=== PATIENT | male | born 1980 | race Caucasian/White ===

== ENCOUNTER 2020-02-21 02:04 | Emergency (ER) | payer SELFPAY ==
[2020-02-21 02:19] VITALS: BP 131/85; PULSE 94; RESP 18; TEMP 37.1; O2SAT 97; BMI 27.6
--- NOTE | 2020-02-21 02:28 | PC.NURSE ---
Pt's left ear flushed by nurse and bug was flushed out, pt did not wait to be seen by Physician, I explained that Dr Gallego would like to see him, but he declined. Pt left without being seen, he was informed to return if he has any issues.
[2020-02-21 02:33] VITALS: BP 000/00; PULSE 0; RESP 0; TEMP -17.7; TEMP 0
== END 2020-02-21 02:36 | disposition left against medical advice (07) ==
PROVIDERS: Emergency Provider Emergency Medicine
DX: T16.2XXA Foreign body in left ear, initial encounter (principal)
CPT/HCPCS: 99211; 99282

== ENCOUNTER 2020-09-08 13:48 | Emergency (ER) | payer OTHER, SELFPAY ==
[2020-09-08 14:00] VITALS: BP 139/91; PULSE 74; RESP 20; TEMP 36.8; O2SAT 99; BMI 24.4
--- NOTE | 2020-09-08 14:16 | HMH.EDUTC ---
[facility] [place] Clinical Impression: Exposure to COVID-19 virus Disposition: Home, Self-Care Condition on Discharge: Good Instructions: Preventing the Spread of Coronavirus Discharge Instructions Additional Instructions: You have been tested for COVID19. Please isolate as if you are positive. Prescriptions: Amoxicillin/Potassium Clav [Augmentin 875-125 Tablet] 1 tab PO Q12H 10 Days #20 tab Transmission Status: Pending to [facility] predniSONE [Prednisone 20mg Tab] 20 mg PO BID 5 Days #10 tab Transmission Status: Pending to [facility] Referrals: PCP,No [Primary Care Provider] - Forms: Work/School Release Time of Disposition: 14:22 Medical Decision Making - Soto Inquiry Pt receiving controlled substance: No Orders (Tests/Meds): ORDERS Category Date Time Status Covid-19 Nasal PCR Sendout P&C Routine Lab 09/08/20 13:55 Ordered [facility] [place] - General Stated complaint: Covid test Time Seen by Provider: 09/08/20 14:16 - History of Present Illness Provider Complaint: Cough and congestion X 1 month. No fever. Denies ear pain. Does have sore throat. No loss of taste or smell. Cough productive of yellow sputum. No vomiting or diarrhea. Onset (ago): month(s) (1) Location: chest Relieving factors: none Exacerbating factors: none Associated symptoms: denies other symptoms Treatments prior to arrival: none - Related Data Previous Rx's Medication Instructions Recorded Amoxicillin/Potassium Clav 1 tab PO Q12H 10 Days #20 tab 09/08/20 [Augmentin 875-125 Tablet] predniSONE [Prednisone 20mg 20 mg PO BID 5 Days #10 tab 09/08/20 Tab] [facility] History - Hepatitis A Screen Attestation statement:: This patient has been screened for Hepatitis A risk factors. I have reviewed the patient's past medical history: Yes Medical History: Denies:: Diabetes Mellitus Type 1, Diabetes Mellitus Type 2 - Social History Smoking Status: Current every day smoker Tobacco Type: cigarettes # Packs/Day (cigarettes): 1 Alcohol Intake: never Substance Use Type: marijuana Occupational Status: employed ROS Obtained: Yes All systems reviewed & no additional complaints - Constitutional Constitutional: Reports headache(s) - ENT Ears, Nose, Mouth, and Throat: Reports sinus pain - Respiratory Respiratory: Reports cough Physical Exam - General General appearance: alert, in no apparent distress - Head Head exam: normocephalic - Eye Eye exam: Present: PERRL - ENT ENT exam: Present: normal oropharynx - Chest Chest inspection: Present: symmetric chest wall rise - Respiratory Respiratory exam: Present: normal lung sounds bilaterally - Cardiovascular Cardiovascular exam: Present: regular rate, normal rhythm - Neurological Exam Neurological exam: Present: alert, oriented X3 - Psychiatric Psychiatric exam: Present: normal affect, normal mood - Skin Skin exam: Present: warm, dry, intact
[2020-09-08 14:29] VITALS: BP 139/91; PULSE 74; RESP 20; TEMP 36.8; O2SAT 99
[2020-09-09 11:48] LABS: Covid-19 Nasal PCR Sendout P&C Negative
== END 2020-09-08 14:33 | disposition home or self-care (01) ==
PROVIDERS: Emergency Provider Physician Assistant
DX: Z20.822 Contact with and (suspected) exposure to COVID-19 (principal); F17.210 Nicotine dependence, cigarettes, uncomplicated
CPT/HCPCS: 99202; G0463; U0004

== ENCOUNTER 2020-12-15 12:01 | Emergency (ER) | payer OTHER, SELFPAY ==
[2020-12-15 12:01] VITALS: BP 140/87; PULSE 84; RESP 16; TEMP 37.2; O2SAT 98; BMI 23.6
--- NOTE | 2020-12-15 12:25 | HMH.EDUTC ---
[facility] [place] Impression: Gastroenteritis Disposition: Home, Self-Care Condition on Discharge: Good Instructions: DI for Viral Gastroenteritis -- Adult Additional Instructions: Clear liquids,bland diet Prescriptions: Ondansetron [Ondansetron Odt 8mg Tab] 8 mg PO TID PRN 10 Days #30 tab PRN Reason: Nausea Transmission Status: Pending to [id number] Referrals: PCP,No [Primary Care Provider] - Forms: Work/School Release Time of Disposition: 12:31 Medical Decision Making - Soto Inquiry Pt receiving controlled substance: No Vital Signs: 12/15/20 12:01 Temperature 98.9 F Temperature Source Oral Pulse Rate [Right] 84 Respiratory Rate 16 Blood Pressure [Right Arm] 140/87 Blood Pressure Mean [Right Arm] 104 Blood Pressure Source [Right Arm] Automatic Cuff Blood Pressure Position [Right Arm] Sitting 02 Sat by Pulse Oximetry 98 Oxygen Delivery Method Room Air [facility] [place] - General Stated complaint: body aches, diarrhea, fever Time Seen by Provider: 12/15/20 12:25 Mode of Arrival: Ambulatory Source of Information: Patient Limitations: No Limitations Description of Symptoms (Recalled from Triage Doc. by RN): Pt c/po diarrhea, nausea that started yesterday along with fever HEENT Symptoms (Recalled from RN notes): No Resp Symptoms (Recalled from RN notes): No Skin Symptoms (Recalled from RN notes): No MS Symptoms (Recalled from RN notes): No Functional Status (Recalled from RN notes): na - History of Present Illness Provider Complaint: Nausea, vomiting, diarrhea X 2 days. Fever 102. No appetite. Has had body aches with fever. Denies ear pain, sore throat. No cough. Onset (ago): day(s) (2) Location: abdomen Relieving factors: none Exacerbating factors: none Associated symptoms: fever/chills, nausea/vomiting Treatments prior to arrival: other (Tylenol) - Related Data Previous Rx's Medication Instructions Recorded Amoxicillin/Potassium Clav 1 tab PO Q12H 10 Days #20 tab 09/08/20 [Augmentin 875-125 Tablet] predniSONE [Prednisone 20mg 20 mg PO BID 5 Days #10 tab 09/08/20 Tab] Ondansetron [Ondansetron Odt 8mg 8 mg PO TID PRN 10 Days #30 tab 12/15/20 Tab] Allergies Allergy/AdvReac Type Severity Reaction Status Date / Time No Known Allergies Allergy Verified 09/08/20 14:24 - Worker's Comp Is this a Worker's Comp case?: No [facility] History - Hepatitis A Screen Drug use history?: No High risk sexual behaviors?: No History of sexually transmitted infection?: No Currently employed?: No Childcare worker?: No Do you have indoor plumbing?: Yes Do you have electricity?: Yes Attestation statement:: This patient has been screened for Hepatitis A risk factors. I have reviewed the patient's past medical history: Yes Medical History: Denies:: Diabetes Mellitus Type 1, Diabetes Mellitus Type 2 - Social History Smoking Status: Current every day smoker Tobacco Type: cigarettes # Packs/Day (cigarettes): 1 Alcohol Intake: never Substance Use Type: marijuana Occupational Status: other ROS Obtained: Yes All systems reviewed & no additional complaints - Constitutional Constitutional: Reports body ache, Reports fever(s) - Gastrointestinal Gastrointestingal: Reports: loose stools, vomiting Physical Exam - General General appearance: alert, in no apparent distress - Head Head exam: normocephalic - Eye Eye exam: Present: PERRL - ENT ENT exam: Present: normal oropharynx - Respiratory Respiratory exam: Present: normal lung sounds bilaterally - Cardiovascular Cardiovascular exam: Present: regular rate, normal rhythm - Neurological Exam Neurological exam: Present: alert, oriented X3 - Psychiatric Psychiatric exam: Present: normal affect, normal mood - Skin Skin exam: Present: warm, dry, intact
[2020-12-15 12:32] VITALS: BP 140/87; PULSE 80; RESP 16; TEMP 36.8; O2SAT 98
== END 2020-12-15 12:34 | disposition home or self-care (01) ==
PROVIDERS: Emergency Provider Physician Assistant
DX: K52.9 Noninfective gastroenteritis and colitis, unspecified (principal); F17.210 Nicotine dependence, cigarettes, uncomplicated
CPT/HCPCS: 99202; G0463

== ENCOUNTER 2021-01-18 11:26 | Emergency (ER) | payer OTHER, SELFPAY ==
[2021-01-18 11:32] VITALS: BP 127/69; PULSE 78; RESP 17; TEMP 36.8; O2SAT 98; BMI 27.6
[2021-01-18 11:43] VITALS: BP 127/69; PULSE 78; RESP 17; TEMP 36.8; O2SAT 98
--- NOTE | 2021-01-18 11:46 | HMH.EDUTC ---
[facility] [place] Clinical Impression: Torticollis Disposition: Home, Self-Care Condition on Discharge: Good Instructions: DI for Torticollis Additional Instructions: Go home and rest. It would be best if you rested tomorrow too. No heavy lifting. No twisting. Take the oral medications as directed. The muscle relaxer (cyclobenzaprine-flexeril) will make you drowsy, so don't drive or operate heavy machinery after taking it. Follow up with your regular doctor. GO TO THE ER FOR ANY WORSENING SYMPTOMS OR CONCERN, ESPECIALLY BOWEL OR BLADDER ISSUES, SADDLE AREA NUMBNESS, FEVER, ETC Prescriptions: Ibuprofen [Ibuprofen 800mg Tablet] 800 mg PO Q8HP PRN #30 tab PRN Reason: Moderate Pain [facility] Cyclobenzaprine HCl [Cyclobenzaprine 10mg Tab] 10 mg PO BIDP PRN #20 tab PRN Reason: Muscle Spasm Transmission [facility] Referrals: Provider,Referral, [Primary Care Provider] - Forms: Work/School Release Time of Disposition: 12:04 Medical Decision Making - Medical Records Medical records reviewed: No: I reviewed the patient's medical records. - Soto Inquiry Pt receiving controlled substance: No Vital Signs: 01/18/21 11:32 01/18/21 11:43 Temperature 98.3 F 98.3 F Temperature Source Oral Pulse Rate 78 Pulse Rate [Left] 78 Respiratory Rate 17 17 Blood Pressure 127/69 Blood Pressure [Right Arm] 127/69 Blood Pressure Mean [Right Arm] 88 02 Sat by Pulse Oximetry 98 [facility] [place] HPI - General Stated complaint: [id number] back and neck pain Time Seen by Provider: 01/18/21 11:56 Mode of Arrival: Ambulatory Source of Information: Patient Limitations: No Limitations Description of Symptoms (Recalled from Triage Doc. 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 HEENT Symptoms (Recalled from RN notes): No Resp Symptoms (Recalled from RN notes): No Skin Symptoms (Recalled from RN notes): No MS Symptoms (Recalled from RN notes): Yes Functional Status (Recalled from RN notes): wnl - History of Present Illness Provider Complaint: He states that he has been having left sided neck pain since early this morning. He thinks that he pulled a muscle. It was already hurting, then he went to work and had to open a big bag of food. As he was tearing this open he felt his neck pain get worse. He is unable to turn his neck very far either way at this time. He denies any other complaints. - Related Data Previous Rx's Medication Instructions Recorded Amoxicillin/Potassium Clav 1 tab PO Q12H 10 Days #20 tab 09/08/20 [Augmentin 875-125 Tablet] predniSONE [Prednisone 20mg 20 mg PO BID 5 Days #10 tab 09/08/20 Tab] Ondansetron [Ondansetron Odt 8mg 8 mg PO TID PRN 10 Days #30 tab 12/15/20 Tab] Cyclobenzaprine HCl 10 mg PO BIDP PRN #20 tab 01/18/21 [Cyclobenzaprine 10mg Tab] Ibuprofen [Ibuprofen 800mg 800 mg PO Q8HP PRN #30 tab 01/18/21 Tablet] Allergies Allergy/AdvReac Type Severity Reaction Status Date / Time No Known Allergies Allergy Verified 01/18/21 11:43 - Worker's Comp Is this a Worker's Comp case?: No [facility] History - Hepatitis A Screen Drug use history?: No High risk sexual behaviors?: No History of sexually transmitted infection?: No Currently employed?: No Childcare worker?: No Do you have indoor plumbing?: Yes Do you have electricity?: Yes Attestation statement:: This patient has been screened for Hepatitis A risk factors. I have reviewed the patient's past medical history: Yes Medical History: Denies:: Diabetes Mellitus Type 1, Diabetes Mellitus Type 2 - Social History Smoking Status: Current every day smoker Tobacco Type: cigarettes # Packs/Day (cigarettes): 1 Alcohol Intake: never Substance Use Type: marijuana Occupational Status: employed ROS Obtained: Yes All systems review
== END 2021-01-18 12:05 | disposition home or self-care (01) ==
PROVIDERS: Emergency Provider Nurse Practitioner Family
DX: M43.6 Torticollis (principal); F17.210 Nicotine dependence, cigarettes, uncomplicated
CPT/HCPCS: 99202; G0463

== ENCOUNTER 2021-01-21 13:38 | Emergency (ER) | payer OTHER, SELFPAY ==
[2021-01-21 13:40] VITALS: PULSE 91; RESP 20; TEMP 36.6; O2SAT 99; BMI 27.6
--- NOTE | 2021-01-21 13:56 | HMH.EDUTC ---
[facility] [place] Clinical Impression: Torticollis Disposition: Home, Self-Care Condition on Discharge: Good Instructions: DI for Muscle Spasm Additional Instructions: Continue prescribed medication *Ibuprofen as prescribed with meal as needed for pain/inflammation *Not additional anti-inflammatory like motrin, aleve, advil with the above amount of ibuprofen. You can still take Tylenol every 4 hours as needed if you need something else for pain *Ice 20 minutes every 2 hours for the first 48 hours after the initial injury followed by moist heat every 20 minutes 3-4 times a day to affected area *Muscle relaxer as prescribed as needed for muscle spasms but remember, it WILL cause drowsiness You cannot take it and drive, operate machinery or care for small children. *Keep this area active, no movement leads to more stiffness, However take it easy and avoid heavy lifting pushing or pulling *Follow up with you family doctor if no improvement for further treatment Straight to ER if any life threatening symptoms Referrals: Provider,Referral, MD [Primary Care Provider] - As needed Forms: Work/School Release Time of Disposition: 14:04 Medical Decision Making - Soto Inquiry Pt receiving controlled substance: No Soto was queried for this patient: No Vital Signs: 01/21/21 13:40 Temperature 97.8 F Temperature Source Oral Pulse Rate [Right] 91 H Respiratory Rate 20 02 Sat by Pulse Oximetry 99 Oxygen Delivery Method Room Air [facility] [place] - General Stated complaint: neck pain Time Seen by Provider: 01/21/21 13:56 Mode of Arrival: Ambulatory Source of Information: Patient Limitations: No Limitations Description of Symptoms (Recalled from Triage Doc. by RN): PATIENT C/O RIGHT NECK AND SHOULDER PAIN X 1 WEEK HEENT Symptoms (Recalled from RN notes): No Resp Symptoms (Recalled from RN notes): No Skin Symptoms (Recalled from RN notes): No MS Symptoms (Recalled from RN notes): Yes Functional Status (Recalled from RN notes): WNL - History of Present Illness Provider Complaint: Patient states that he was pulling wire about a week ago and feels like he pulled muscles in his upper back and shoulder area States that he was having pain and soreness on the left and he came in and was seen and given medication but feels like he needs a couple more days off work requesting a work note States that now he is having soreness in the right side of his neck and shoulder area like he was having on the left States that prescribed muscle relaxers are working but not had enough time to get the soreness out - Related Data Previous Rx's Medication Instructions Recorded Cyclobenzaprine HCl 10 mg PO BIDP PRN #20 tab 01/18/21 [Cyclobenzaprine 10mg Tab] Ibuprofen [Ibuprofen 800mg 800 mg PO Q8HP PRN #30 tab 01/18/21 Tablet] Allergies Allergy/AdvReac Type Severity Reaction Status Date / Time No Known Allergies Allergy Verified 01/18/21 11:43 - Worker's Comp Is this a Worker's Comp case?: No [facility] History - Hepatitis A Screen Drug use history?: No High risk sexual behaviors?: No History of sexually transmitted infection?: No Currently employed?: No Childcare worker?: No Do you have indoor plumbing?: Yes Do you have electricity?: Yes Attestation statement:: This patient has been screened for Hepatitis A risk factors. I have reviewed the patient's past medical history: Yes Medical History: Denies:: Diabetes Mellitus Type 1, Diabetes Mellitus Type 2 Laterality Cases: Bilateral: Tonsillectomy - Social History Smoking Status: Current every day smoker Tobacco Type: cigarettes # Packs/Day (cigarettes): 1 Alcohol Intake: never Substance Use Type: marijuana Occupational Status: other ROS Obtained: Yes All systems reviewed & no additional complaints, Yes Systems reviewed as appropriate & no additional complaints - Cardiovascular Cardiovascular: Reports system reviewed and no additional complaints, except as docu - Res
[2021-01-21 13:58] VITALS: BP 00/00; PULSE 91; RESP 20; TEMP 36.6; O2SAT 99
== END 2021-01-21 14:00 | disposition home or self-care (01) ==
PROVIDERS: Emergency Provider Nurse Practitioner
DX: M43.6 Torticollis (principal); F17.210 Nicotine dependence, cigarettes, uncomplicated
CPT/HCPCS: 99202; G0463

== ENCOUNTER 2021-01-24 01:21 | Emergency (ER) | payer OTHER, SELFPAY ==
[2021-01-24 01:22] VITALS: BP 169/85; PULSE 71; RESP 14; TEMP 36.6; O2SAT 99; BMI 27.6
--- NOTE | 2021-01-24 02:01 | HMH.EDDENT ---
ED Disposition Clinical Impression: Gingivitis, Pain, dental Disposition: Home, Self-Care Condition on Discharge: Good Instructions: DI for Dental Pain Additional Instructions: see pcp and dentist for follow up Prescriptions: clindamycin HCL [Clindamycin HCl] 300 mg PO TID #21 cap Transmission Status: Pending to [id number] Referrals: Provider,Referral, [Primary Care Provider] - - Critical Care Critical Care Time: No Attestation: On 01/24/21, the high probability of a clinically significant, sudden or life threatening deterioration of the following system(s) required my full and direct attention, intervention and personal management. The time I documented below is in addition to time spent performing reported procedures but includes the following listed in this critical care notation. Medical Decision Making - Medical Records Medical records reviewed: Yes: I reviewed the patient's medical records. - Soto Inquiry Pt receiving controlled substance: No Vital Signs: 01/24/21 01:22 Temperature 97.9 F Temperature Source Oral Pulse Rate [Right] 71 Respiratory Rate 14 Blood Pressure [Right Arm] 169/85 H Blood Pressure Mean [Right Arm] 113 02 Sat by Pulse Oximetry 99 Orders (Tests/Meds): ED MEDICATIONS Discontinued Medications Generic Name Dose Route Start Last Admin Trade Name Freq PRN Reason Stop Dose Admin Benzocaine/Butamben/Tetracaine HCl 1 gm 01/24/21 01:34 01/24/21 01:39 Tetracaine/Benzocaine/Butamben 56 Gm [place] TP 01/24/21 01:35 1 gm ONCE ONE Administration Lidocaine HCl 15 ml 01/24/21 01:34 01/24/21 01:38 Lidocaine 2% Viscous Malika 15ml Udc PO 01/24/21 01:35 15 ml ONCE ONE Administration Medical Decision Narrative: will ask pt to f/u with pcp and dentist Dental HPI - General Chief complaint: Dental/Oral Stated complaint: Toothache Time Seen by Provider: 01/24/21 01:40 Mode of Arrival: Ambulatory Source of Information: Patient, Medical Record Limitations: No Limitations Description of Symptoms (Recalled from ER Triage Doc. by RN): pt states after eating supper started having upper and lower tooth pain on lt side, - History of Present Illness HPI Narrative: lt sided dental pain - worse tonight Complaint: tooth pain Onset (ago): hour(s) Duration: intermittent Severity: moderate Context: history of dental caries Treatment prior to arrival: none - Related Data Previous Rx's Medication Instructions Recorded Cyclobenzaprine HCl 10 mg PO BIDP PRN #20 tab 01/18/21 [Cyclobenzaprine 10mg Tab] Ibuprofen [Ibuprofen 800mg 800 mg PO Q8HP PRN #30 tab 01/18/21 Tablet] clindamycin HCL [Clindamycin HCl] 300 mg PO TID #21 cap 01/24/21 Allergies Allergy/AdvReac Type Severity Reaction Status Date / Time No Known Allergies Allergy Verified 01/18/21 11:43 [facility] History - Hepatitis A Screen Drug use history?: No High risk sexual behaviors?: No History of sexually transmitted infection?: No Currently employed?: No Childcare worker?: No Do you have indoor plumbing?: Yes Do you have electricity?: Yes Attestation statement:: This patient has been screened for Hepatitis A risk factors. I have reviewed the patient's past medical history: Yes Medical History: Denies:: Diabetes Mellitus Type 1, Diabetes Mellitus Type 2 Laterality Cases: Bilateral: Tonsillectomy - Social History Smoking Status: Current some day smoker Tobacco Type: cigarettes # Packs/Day (cigarettes): 1 Alcohol Intake: never Substance Use Type: marijuana Occupational Status: unemployed ROS Obtained: Yes All systems reviewed & no additional complaints - Constitutional Constitutional: Denies fever(s) - Eyes Eyes: Denies change in vision - ENT Ears, Nose, Mouth, and Throat: Reports as per HPI, Reports dental pain - Cardiovascular Cardiovascular: Denies chest pain - Respiratory Respiratory: Denies dyspnea - Gastrointestinal Eduardo
[2021-01-24 02:13] VITALS: BP 126/82; PULSE 77; RESP 18; TEMP 36.6; O2SAT 98
== END 2021-01-24 02:15 | disposition home or self-care (01) ==
PROVIDERS: Emergency Provider Emergency Medicine
DX: K05.10 Chronic gingivitis, plaque induced (principal); K02.9 Dental caries, unspecified
CPT/HCPCS: 99281

== ENCOUNTER 2021-05-04 13:48 | Emergency (ER) | payer OTHER, SELFPAY ==
[2021-05-04 15:17] VITALS: BP 120/79; PULSE 60; RESP 18; TEMP 36.6; O2SAT 96; BMI 25.9
[2021-05-04 15:24] VITALS: BP 120/79; PULSE 60; RESP 18; TEMP 36.6
--- NOTE | 2021-05-04 16:16 | HMH.EDUTC ---
[facility] [place] Clinical Impression: Viral syndrome, Exposure to COVID-19 virus Disposition: Home, Self-Care Condition on Discharge: Good Instructions: DI for Viral Syndrome Additional Instructions: Drink plenty of fluids. Take tylenol for pain or fever. Return if you begin to have difficulty breathing. Follow up with your regular doctor. GO TO THE ER FOR ANY WORSENING SYMPTOMS Quarantine until you know the results of your covid-19 test. If it is positive, the health department should call you and give you further instructions about your length of Quarantine and other things. Notify your school or workplace of your results and follow their instructions regarding return to work/school. Prescriptions: Brompheniramine/Pseudoephed/Dm [Bromfed Dm Cough Syrup] 5 ml PO Q6HP PRN #240 ml PRN Reason: Cough Transmission Status: Received by [facility] Ondansetron [Zofran 4mg ODT] 4 mg PO DAILYP PRN #12 tab PRN Reason: Nausea Transmission Status: Received by [facility] Referrals: Saad Velazco MD [Primary Care Provider] - Forms: Work/School Release Time of Disposition: 16:19 Medical Decision Making - Medical Records Medical records reviewed: No: I reviewed the patient's medical records. - Soto Inquiry Pt receiving controlled substance: No Vital Signs: 05/04/21 15:17 05/04/21 15:24 Temperature 97.9 F 97.9 F Temperature Source Oral Pulse Rate 60 Pulse Rate [Left] 60 Respiratory Rate 18 18 Blood Pressure 120/79 Blood Pressure [Right Arm] 120/79 Blood Pressure Mean [Right Arm] 92 02 Sat by Pulse Oximetry 96 [facility] [place] - General Stated complaint: Cough; SOB; Time Seen by Provider: 05/04/21 16:16 Mode of Arrival: Ambulatory Source of Information: Patient Limitations: No Limitations Description of Symptoms (Recalled from Triage Doc. by RN): pt states he was soa LAST NIGHT and had coughing spells. he would like a covid test. HEENT Symptoms (Recalled from RN notes): No Resp Symptoms (Recalled from RN notes): No Skin Symptoms (Recalled from RN notes): No MS Symptoms (Recalled from RN notes): No Functional Status (Recalled from RN notes): na - History of Present Illness Provider Complaint: He states that he has felt bad for the past 2 days. He has had body aches, fatigue, a dry cough and a scratchy sore throat. - Related Data Previous Rx's Medication Instructions Recorded Cyclobenzaprine HCl 10 mg PO BIDP PRN #20 tab 01/18/21 [Cyclobenzaprine 10mg Tab] Ibuprofen [Ibuprofen 800mg 800 mg PO Q8HP PRN #30 tab 01/18/21 Tablet] clindamycin HCL [Clindamycin HCl] 300 mg PO TID #21 cap 01/24/21 Brompheniramine/Pseudoephed/Dm 5 ml PO Q6HP PRN #240 ml 05/04/21 [Bromfed Dm Cough Syrup] Ondansetron [Zofran 4mg ODT] 4 mg PO DAILYP PRN #12 tab 05/04/21 Allergies Allergy/AdvReac Type Severity Reaction Status Date / Time No Known Allergies Allergy Verified 01/18/21 11:43 - Worker's Comp Is this a Worker's Comp case?: No [facility] History - Hepatitis A Screen Drug use history?: No High risk sexual behaviors?: No History of sexually transmitted infection?: No Currently employed?: No Childcare worker?: No Do you have indoor plumbing?: Yes Do you have electricity?: Yes Attestation statement:: This patient has been screened for Hepatitis A risk factors. I have reviewed the patient's past medical history: Yes Medical History: Denies:: Diabetes Mellitus Type 1, Diabetes Mellitus Type 2 Laterality Cases: Bilateral: Tonsillectomy - Social History Smoking Status: Current some day smoker Tobacco Type: cigarettes # Packs/Day (cigarettes): 1 Alcohol Intake: never Substance Use Type: marijuana Occupational Status: unemployed ROS Obtained: Yes All systems reviewed & no additional complaints - Constitutional Constitutional: Reports system reviewed and no additional complaints, except as docu - Eyes Eyes: Reports system reviewed and no
== END 2021-05-04 16:30 | disposition home or self-care (01) ==
PROVIDERS: Emergency Provider Nurse Practitioner Family; PCP Family Medicine
DX: B34.9 Viral infection, unspecified (principal); Z20.822 Contact with and (suspected) exposure to COVID-19; F17.210 Nicotine dependence, cigarettes, uncomplicated
CPT/HCPCS: 99202; C9803; G0463; U0003; U0005

== ENCOUNTER 2021-06-27 12:36 | Emergency (ER) | payer OTHER, SELFPAY ==
[2021-06-27 12:40] VITALS: BP 141/85; PULSE 85; RESP 19; TEMP 36.8; O2SAT 99; BMI 26.4
[2021-06-27 12:57] LABS: UTC Strep Screen (Rapid) Positive (Negative)
--- NOTE | 2021-06-27 13:12 | HMH.EDUTC ---
[facility] [place] Disposition Clinical Impression: Strep throat Disposition: Home, Self-Care Condition on Discharge: Good Instructions: DI for Strep Throat, Strep Throat Additional Instructions: *Monitor Temp, Over the counter Motrin or Tylenol as directed/as needed Tylenol every 4 hours and Motrin every 6 hours (as long as your family doctor has told you that you can take it) for fever or pain. and straight to ER if unable to lower temp less than 101.0 after medication given *Warm salt water gargles may help to soothe the throat *Throat Lozenges *Warm fluids like tea with honey may help to soothe the throat *Sleep elevated *Humidifier/Vaporizer *If you did not take Penicillin shot or was unable to, start taking antibiotic immediately and make sure that you take it for the FULL length of time although you should start to feel better in 24-48 hours *change toothbrush and toothpaste 24-48 hours after starting to take antibiotics so you do not reinfect yourself Monitor Temp. Tylenol and/or Ibuprofen as needed. ER if fever is no less than 101 despite alternating Tylenol and Ibuprofen * Encourage fluids, water, Gatorade, powerade, pedialyte if infant/toddler/or child *Cold fluids, popsicles and ice cream may feel good on his throat Follow up IMMEDIATELY for new or worsening symptoms or no Noticeable improvement over the next 48-72 hours. 911 for difficulty breathing or swallowing Prescriptions: Amoxicillin [Amoxicillin 875MG Tab] 875 mg PO Q12H #20 tab Transmission Status: Pending to [facility] Referrals: Saad Velazco MD [Primary Care Provider] - As needed Time of Disposition: 13:21 Medical Decision Making - Soto Inquiry Pt receiving controlled substance: No Soto was queried for this patient: No Vital Signs: 06/27/21 12:40 Temperature 98.2 F Temperature Source Oral Pulse Rate [Right Brachial] 85 Respiratory Rate 19 Blood Pressure [Right Arm] 141/85 H Blood Pressure Mean [Right Arm] 103 Blood Pressure Source [Right Arm] Automatic Cuff Blood Pressure Position [Right Arm] Sitting 02 Sat by Pulse Oximetry 99 Oxygen Delivery Method Room Air - Lab Data Lab results reviewed: Yes: I reviewed the patient's lab results. Lab Results 06/27/21 12:51: Strep Scn Rapid Clinic Positive A [facility] [place] HPI - General Stated complaint: sore throat, congestion, runny nose Time Seen by Provider: 06/27/21 13:13 Mode of Arrival: Ambulatory Source of Information: Patient Limitations: No Limitations Description of Symptoms (Recalled from Triage Doc. by RN): PATIENT C/O SORE THROAT, MILD FEVER, AND SINUS CONGESTION X 2 DAYS HEENT Symptoms (Recalled from RN notes): Yes Resp Symptoms (Recalled from RN notes): No Skin Symptoms (Recalled from RN notes): No MS Symptoms (Recalled from RN notes): No Functional Status (Recalled from RN notes): WNL - History of Present Illness Provider Complaint: Patient states that he has been having sore throat, sinus congestion and pressure along with drainage for several day States that today he was still feeling bad and wanted to get checked out - Related Data Previous Rx's Medication Instructions Recorded Amoxicillin [Amoxicillin 875MG 875 mg PO Q12H #20 tab 06/27/21 Tab] Allergies Allergy/AdvReac Type Severity Reaction Status Date / Time No Known Allergies Allergy Verified 01/18/21 11:43 - Worker's Comp Is this a Worker's Comp case?: No [facility] History - Hepatitis A Screen Drug use history?: No High risk sexual behaviors?: No History of sexually transmitted infection?: No Currently employed?: No Childcare worker?: No Do you have indoor plumbing?: Yes Do you have electricity?: Yes Attestation statement:: This patient has been screened for Hepatitis A risk factors. I have reviewed the patient's past medical history: Yes Medical History: Denies:: Diabetes Mellitus Type 1, Diabetes Mellitus Type 2 Laterality Cases: Bilateral: Tonsillectomy - Social Histo
[2021-06-27 13:28] VITALS: BP 141/85; PULSE 85; RESP 19; TEMP 36.8; O2SAT 99
== END 2021-06-27 13:31 | disposition home or self-care (01) ==
PROVIDERS: Emergency Provider Nurse Practitioner; PCP Family Medicine
DX: J02.0 Streptococcal pharyngitis (principal); F17.210 Nicotine dependence, cigarettes, uncomplicated
CPT/HCPCS: 87880; 99202; G0463

== ENCOUNTER 2021-09-01 13:34 | Emergency (ER) | payer OTHER, SELFPAY ==
[2021-09-01 15:35] VITALS: BP 121/86; PULSE 87; RESP 19; TEMP 37; O2SAT 99; BMI 27.6
--- NOTE | 2021-09-01 15:56 | HMH.EDUTC ---
[facility] [place] Clinical Impression: Exposure to COVID-19 virus Disposition: Home, Self-Care Condition on Discharge: Good Instructions: DI for COVID-19 (Suspected or Confirmed ), Preventing the Spread of Coronavirus Discharge Instructions Additional Instructions: *Monitor Temp, Over the counter Motrin or Tylenol as directed/as needed Tylenol every 4 hours and Motrin every 6 hours (as long as your family doctor has told you that you can take it) for fever or pain. and straight to ER if unable to lower temp less than 101.0 after medication given *Warm salt water gargles may help to soothe the throat *Throat Lozenges *Warm fluids like tea with honey may help to soothe the throat *Sleep elevated *Humidifier/Vaporizer Follow up IMMEDIATELY for new or worsening symptoms or no Noticeable improvement over the next 48-72 hours. 911 for difficulty breathing or swallowing You were tested for today for COVID19 your test result should be back in the next 24-48 hours, you may check your results on the [facility] Portal if you have trouble logging on you may call You was given a handout with instructions for Self Quarantine and Self isolation for while you wait on test results and what to do if they are positive If you are positive the Health Dept will be contacting you also Make sure to take your Vitamins Vit. C Vit D and Zinc if you can take them Referrals: Saad Velazco MD [Primary Care Provider] - As needed Forms: Work/School Release Time of Disposition: 15:59 Medical Decision Making - Soto Inquiry Pt receiving controlled substance: No Soto was queried for this patient: No Vital Signs: 09/01/21 15:35 Temperature 98.6 F Temperature Source Oral Pulse Rate [Right Brachial] 87 Respiratory Rate 19 Blood Pressure [Right Arm] 121/86 Blood Pressure Mean [Right Arm] 97 Blood Pressure Source [Right Arm] Automatic Cuff Blood Pressure Position [Right Arm] Sitting 02 Sat by Pulse Oximetry 99 Oxygen Delivery Method Room Air Orders (Tests/Meds): ORDERS Category Date Time Status Covid-19 Nasal PCR ([facility]) Routine Lab 09/01/21 15:40 [place] [facility] [place] - General Stated complaint: covid test Time Seen by Provider: 09/01/21 15:56 Mode of Arrival: Ambulatory Source of Information: Patient Limitations: No Limitations Description of Symptoms (Recalled from Triage Doc. by RN): PATIENT REQUESTING COVID TEST D/T EXPOSURE HEENT Symptoms (Recalled from RN notes): No Resp Symptoms (Recalled from RN notes): No Skin Symptoms (Recalled from RN notes): No MS Symptoms (Recalled from RN notes): No Functional Status (Recalled from RN notes): WNL - History of Present Illness Provider Complaint: Patient states that he was around his girlfriend and she recently tested positive for COVID state that he is not having any symptoms but work will not let him return without a COVID test - Related Data Previous Rx's Medication Instructions Recorded Amoxicillin [Amoxicillin 875MG 875 mg PO Q12H #20 tab 06/27/21 Tab] Allergies Allergy/AdvReac Type Severity Reaction Status Date / Time No Known Allergies Allergy Verified 01/18/21 11:43 - Worker's Comp Is this a Worker's Comp case?: No H History - Hepatitis A Screen Drug use history?: No High risk sexual behaviors?: No History of sexually transmitted infection?: No Currently employed?: No Childcare worker?: No Do you have indoor plumbing?: Yes Do you have electricity?: Yes Attestation statement:: This patient has been screened for Hepatitis A risk factors. I have reviewed the patient's past medical history: Yes Medical History: Denies:: Diabetes Mellitus Type 1, Diabetes Mellitus Type 2 Laterality Cases: Bilateral: Tonsillectomy - Social History Smoking Status: Current every day smoker Tobacco Type: cigarettes # Packs/Day (cigarettes): 1 Alcohol Intake: never Substance Use Type: marijuana Occupational Status: other ROS Obtained: Yes All syst
[2021-09-01 16:01] VITALS: BP 121/86; PULSE 87; RESP 19; TEMP 37; O2SAT 99
== END 2021-09-01 16:09 | disposition home or self-care (01) ==
PROVIDERS: Emergency Provider Nurse Practitioner; PCP Family Medicine
DX: U09.9 Post COVID-19 condition, unspecified (principal)
CPT/HCPCS: 99202; C9803; G0463; U0003; U0005

== ENCOUNTER 2021-10-02 09:01 | Emergency (ER) | payer OTHER, SELFPAY ==
[2021-10-02 09:28] VITALS: BP 147/83; PULSE 88; RESP 18; TEMP 37.4; O2SAT 98; BMI 25.0
--- NOTE | 2021-10-02 09:45 | XR_ITS ---
FINAL REPORT CLINICAL HISTORY: cough, fever FINDINGS: Two views of the chest were obtained. The heart size and pulmonary vascularity are within normal limits. The mediastinum is normal. No acute pulmonary abnormality is identified. There is no pneumothorax. The bony thorax is intact. IMPRESSION: No active cardiopulmonary disease. Reviewed, Interpreted and Dictated by Butch Edwards III, MD Transcribed by Sierra Arcos Authenticated by Butch Edwards III, MD on 10/02/2021 11:32:16 AM [facility]
[2021-10-02 09:55] LABS: UTC Influenza A Antigen Negative (Negative); UTC Influenza B Antigen Negative (Negative)
--- NOTE | 2021-10-02 09:58 | HMH.EDUTC ---
[facility] [place] Disposition Clinical Impression: Exposure to COVID-19 virus, Viral syndrome Pharyngitis Qualifiers: Pharyngitis/tonsillitis etiology: unspecified etiology Qualified Code(s): J02.9 - Acute pharyngitis, unspecified Disposition: Home, Self-Care Condition on Discharge: Good Instructions: DI for Pharyngitis/Tonsillopharyngitis -- Adult, DI for COVID-19 (Suspected or Confirmed ), Preventing the Spread of Coronavirus Discharge Instructions Additional Instructions: Drink plenty of fluids. Take tylenol or ibuprofen for pain or fever. Take the medications as directed. Follow up with your regular doctor. GO TO THE ER FOR ANY WORSENING SYMPTOMS Quarantine until you know the results of your covid-19 test. Notify your school or workplace of your results and follow their instructions regarding return to work/school. Prescriptions: Albuterol Sulfate [Albuterol Sulfate Hfa] 2 puffs IH Q6HP PRN 30 Days #1 each PRN Reason: Shortness Of Breath Transmission Status: Received by [facility] Brompheniramine/Pseudoephed/Dm [Bromfed Dm Cough Syrup] 5 ml PO Q6HP PRN #240 ml PRN Reason: Cough Transmission Status: Received by [facility] Ondansetron [Zofran 4mg ODT] 4 mg PO Q8HP PRN #20 tab PRN Reason: Nausea Transmission Status: Received by [facility] methylPREDNISolone [Medrol] 4 mg PO DIRECTED 6 Days #21 packet Transmission Status: Received by [facility] Azithromycin [Z-Yordan 250mg Tab*] 250 mg PO UD DOSE PK #6 tab Transmission Status: Received by [facility] Referrals: Saad Velazco MD [Primary Care Provider] - Forms: Work/School Release Time of Disposition: 10:39 Medical Decision Making - Medical Records Medical records reviewed: No: I reviewed the patient's medical records. - Soto Inquiry Pt receiving controlled substance: No Vital Signs: 10/02/21 09:28 10/02/21 11:10 Temperature 99.3 F 99.3 F Temperature Source Oral Pulse Rate 88 Pulse Rate [Left] 88 Respiratory Rate 18 18 Blood Pressure 147/83 H Blood Pressure [Right Arm] 147/83 H Blood Pressure Mean [Right Arm] 104 02 Sat by Pulse Oximetry 98 - Lab Data Lab results reviewed: Yes: I reviewed the patient's lab results. Lab Results 10/02/21 09:31: Group A Strep Rapid Negative 10/02/21 09:32: Influenza Type A Ag Negative, Influenza Type B Ag Negative Orders (Tests/Meds): ORDERS Category Date Time Status Chest XR 2 view (NOT portable) [XR chest 2V] Stat Exams 10/02/21 09:45 Taken Covid-19 Nasal PCR ([facility]) Routine Lab 10/02/21 09:31 Received Strep Screen Confirmation Stat Micro 10/02/21 09:31 Received [facility] UTC HPI - General Stated complaint: fever, cough, congestion, body aches Time Seen by Provider: 10/02/21 09:58 Mode of Arrival: Ambulatory Source of Information: Patient Limitations: No Limitations Description of Symptoms (Recalled from Triage Doc. by RN): pt states symptoms started on 09/28. pt states initially he was having diarhea and now is having congestion, fever, dry cough, pain with deep breathing and chest tightness. HEENT Symptoms (Recalled from RN notes): No Resp Symptoms (Recalled from RN notes): No Skin Symptoms (Recalled from RN notes): No MS Symptoms (Recalled from RN notes): No Functional Status (Recalled from RN notes): wnl - History of Present Illness Provider Complaint: He states that for the past 2 days he has felt bad. He has had sore throat, chills, fever up to 103, n/v/d. He denies any abdominal pain. - Related Data Previous Rx's Medication Instructions Recorded Amoxicillin [Amoxicillin 875MG 875 mg PO Q12H #20 tab 06/27/21 Tab] Albuterol Sulfate [Albuterol 2 puffs IH Q6HP PRN 30 Days #1 each 10/02/21 Sulfate Hfa] Azithromycin [Z-Yordan 250mg Tab*] 250 mg PO UD DOSE PK #6 tab 10/02/21 Brompheniramine/Pseudoephed/Dm 5 ml PO Q6HP PRN #240 ml 10/02/21 [Bromfed Dm Cough Syrup] Ondansetron [Zofran 4mg ODT] 4 mg PO
[2021-10-02 10:14] LABS: Strep Scrn Group A (Rapid) Negative (Negative)
[2021-10-02 11:10] VITALS: BP 147/83; PULSE 88; RESP 18; TEMP 37.4
== END 2021-10-02 11:11 | disposition home or self-care (01) ==
PROVIDERS: Emergency Provider Nurse Practitioner Family; PCP Family Medicine
DX: U07.1 COVID-19 (principal); J02.9 Acute pharyngitis, unspecified; F17.210 Nicotine dependence, cigarettes, uncomplicated
CPT/HCPCS: 71046; 87430; 87804; 99202; C9803; G0463; U0003; U0005

== ENCOUNTER 2022-04-01 16:50 | Emergency (ER) | payer BC, SELFPAY ==
[2022-04-01 17:08] VITALS: BP 134/59; PULSE 75; RESP 16; TEMP 36.7; O2SAT 95; BMI 25.4
--- NOTE | 2022-04-01 17:09 | HMH.EDUTC ---
[facility] [place] Disposition Clinical Impression: Gastroenteritis Pancreatitis Qualifiers: Chronicity: chronic Pancreatitis type: unspecified pancreatitis type Qualified Code(s): K86.1 - Other chronic pancreatitis Disposition: Home, Self-Care Condition on Discharge: Good Instructions: DI for Viral Gastroenteritis -- Adult Prescriptions: Promethazine HCl [Phenergan 25mg tab] 25 mg PO BID #12 tab Transmission Status: Received by [facility] Ondansetron [Zofran 4mg ODT] 4 mg PO BIDP PRN #10 tab PRN Reason: Nausea Transmission Status: Received by [facility] Referrals: Mendoza Barber II, MD [Referring] - Kemi Mayes APRN [Primary Care Provider] - Medical Decision Making - Medical Records Medical records reviewed: No: I reviewed the patient's medical records. - Soto Inquiry Pt receiving controlled substance: No Vital Signs: 04/01/22 17:08 04/01/22 18:11 04/01/22 18:30 Temperature 98.1 F 98.2 F Temperature Source Oral Oral Pulse Rate 56 L Pulse Rate [Left] 75 64 Respiratory Rate 16 17 18 Blood Pressure 144/81 H Blood Pressure [Right Arm] 134/59 L 137/86 Blood Pressure Mean 102 Blood Pressure Mean [Right Arm] 84 103 Blood Pressure Source [Right Arm] Automatic Cuff Blood Pressure Position [Right Arm] Sitting 02 Sat by Pulse Oximetry 95 99 99 Oxygen Delivery Method Room Air 04/01/22 19:52 Temperature 98.2 F Temperature Source Oral Pulse Rate 59 L Pulse Rate [Left] Respiratory Rate 18 Blood Pressure 135/79 Blood Pressure [Right Arm] Blood Pressure Mean Blood Pressure Mean [Right Arm] Blood Pressure Source [Right Arm] Blood Pressure Position [Right Arm] 02 Sat by Pulse Oximetry Oxygen Delivery Method - Lab Data Lab Results 04/01/22 17:18: WBC 9.8, RBC 4.78, Hgb 15.2, Hct 45.9, MCV 95.9 H, MCH 31.9 H, MCHC 33.2, RDW 14.0, Plt Count 271, MPV 7.8, Neut % (Auto) 55.6, Lymph % (Auto) 33.7, Boyd % (Auto) 6.3, Eos % (Auto) 2.8, Baso % (Auto) 1.5, Neut # (Auto) 5.5, Lymph # (Auto) 3.3, Boyd # (Auto) 0.6, Eos # (Auto) 0.3, Baso # (Auto) 0.2 04/01/22 17:18: Sodium 138, Potassium 3.6, Chloride 105, Carbon Dioxide 29, Anion Gap 7.6, BUN 13, Creatinine 0.90, Estimated Creat Clear 129, Estimated GFR 94, Est GFR ( Amer) 114, Glucose 99, Calcium 9.2, Amylase 172 H, Lipase 484 H Result diagrams: 04/01/22 17:18 04/01/22 17:18 Orders (Tests/Meds): ED MEDICATIONS Discontinued Medications Generic Name Dose Route Start Last Admin Trade Name Freq PRN Reason Stop Dose Admin Diphenhydramine HCl 25 mg 04/01/22 18:30 04/01/22 18:44 Diphenhydramine 50mg/Ml Vial IV 04/01/22 18:31 25 mg ONCE ONE Administration Sodium Chloride 1,000 mls @ 999 mls/hr 04/01/22 18:30 04/01/22 18:45 Sod Chlor 0.9% 1000ml Bag IV 04/01/22 19:30 999 mls/hr .Q1H1M CHRISTEL Administration Iopamidol 75 ml 04/01/22 18:59 04/01/22 19:00 Iopamidol-370 (76%);100ml Bottle IV 04/01/22 19:00 75 ml ONCE ONE Administration Ondansetron HCl 4 mg 04/01/22 18:30 04/01/22 18:44 Ondansetron 4mg/2ml Vial IV 04/01/22 18:31 4 mg ONCE ONE Administration Sodium Chloride 10 ml 04/01/22 18:44 Sodium Chloride 0.9% 10ml Flush Syringe IV 05/01/22 18:43 NEEDED PRN Maintain IV Site Sodium Chloride 10 ml 04/01/22 18:59 04/01/22 19:00 Sodium Chloride 0.9% 10ml Syr (Rad Only) IV 04/01/22 19:00 10 ml ONCE ONE Administration Medical Decision Narrative: He was sent to the ER due to his abdominal pain and his elevated pancreatic enzymes. [facility] [place] HPI - General Stated complaint: blood in stool Time Seen by Provider: 04/01/22 17:09 - History of Present Illness Provider Complaint: He is here with complaints of having abdominal pain for the past several weeks. He denies any pattern to his pain. He states that he has had a lot of heart burn symptoms too. Since yesteday morning he has had bright red blood in his stool. He is bam
[2022-04-01 17:39] LABS: Basophils # 0.2 K/mm3 (0-0.2); Basophils % 1.5 % (0.1-2.0); Eosinophils # 0.3 K/mm3 (0.0-0.4); Eosinophils % 2.8 % (0.1-12.0); Hematocrit 45.9 % (42.0-52.0); Hemoglobin 15.2 g/dL (14.1-18.0); Lymphocytes # 3.3 K/mm3 (0.7-4.5); Lymphocytes % 33.7 % (10-50); Mean Corpuscular HGB Conc 33.2 g/dL (31.8-35.4); Mean Corpuscular Hemoglobin 31.9 pg (27.0-31.2); Mean Corpuscular Volume 95.9 fl (80-94); Mean Platelet Volume 7.8 fl (7.4-10.4); Monocytes # 0.6 K/mm3 (0.1-1.0); Monocytes % 6.3 % (1.7-9.3); Neutrophils # 5.5 K/mm3 (1.8-7.8); Neutrophils % 55.6 % (37.0-80.0); Platelet Count 271 K/mm3 (142-424); Red Blood Count 4.78 M/mm3 (4.60-6.20); White Blood Count 9.8 K/mm3 (4.8-10.8)
[2022-04-01 17:43] LABS: Amylase 172 U/L (30-110); Anion Gap 7.6 mEq/L (5-15); Blood Urea Nitrogen 13 mg/dl (9-20); Calcium 9.2 mg/dl (8.4-10.2); Carbon Dioxide 29 mmol/L (22.0-30.0); Chloride 105 mmol/L (98-107); Creatinine Clearance Estimated 129 mL/min (50-200); Estimated Glomerular Filt Rate 94 ml/min (>60); GFR (African American) 114 ML/MIN (>60); Glucose 99 mg/dl (74-100); Lipase 484 U/L (23-300); Potassium 3.6 mmoL/L (3.5-5.1); Sodium 138 mmol/L (136-145)
[2022-04-01 18:11] VITALS: BP 137/86; PULSE 64; RESP 17; TEMP 36.8; O2SAT 99; BMI 25.1
--- NOTE | 2022-04-01 18:27 | PC.NURSE ---
ED MD AT BEDSIDE FOR EVALUATION
[2022-04-01 18:30] VITALS: BP 144/81; PULSE 56; RESP 18; O2SAT 99
--- NOTE | 2022-04-01 18:30 | CT_ITS ---
PROCEDURE INFORMATION: Exam: CT Abdomen And Pelvis With Contrast Exam date and time: 04/01/2022 6:44 PM Age: 41 years old Clinical indication: Abdominal pain; Epigastric; Additional info: Epigastric pain TECHNIQUE: Imaging protocol: Computed tomography of the abdomen and pelvis with contrast. Radiation optimization: All CT scans at this facility use at least one of these dose optimization techniques: automated exposure control; mA and/or kV adjustment per patient size (includes targeted exams where dose is matched to clinical indication); or iterative reconstruction. Contrast material: ISOVUE; Contrast volume: 75 ml; Contrast route: IV; COMPARISON: CR XR CHEST 2V 10/02/2021 10:02 AM FINDINGS: Lungs: Mild scarring and atelectasis in the lower lungs. Liver: Normal. No mass. Gallbladder and bile ducts: Normal. No calcified stones. No ductal dilation. Pancreas: Normal. No ductal dilation. Spleen: Normal. No splenomegaly. Adrenal glands: Normal. No mass. Kidneys and ureters: Normal. No hydronephrosis. Stomach and bowel: Nonspecific widespread small bowel wall thickening. Mild gastric wall thickening. Appendix: Unremarkable appendix. Intraperitoneal space: Unremarkable. No free air. No significant fluid collection. Vasculature: The arteries demonstrate mild atherosclerotic disease. Lymph nodes: Unremarkable. No enlarged lymph nodes. Urinary bladder: Unremarkable as visualized. Reproductive: Unremarkable as visualized. Bones/joints: Unremarkable. No acute fracture. Soft tissues: Unremarkable. IMPRESSION: Nonspecific findings that suggest gastroenteritis.
--- NOTE | 2022-04-01 18:45 | PC.NURSE ---
PT TO CT AT THIS TIME
--- NOTE | 2022-04-01 18:58 | PC.NURSE ---
PT RETURNED FROM CT AT THIS TIME
--- NOTE | 2022-04-01 19:44 | HMH.EDGENADL ---
ED Disposition Clinical Impression: Gastroenteritis Pancreatitis Qualifiers: Chronicity: chronic Pancreatitis type: unspecified pancreatitis type Qualified Code(s): K86.1 - Other chronic pancreatitis Disposition: Home, Self-Care Condition on Discharge: Good Instructions: DI for Viral Gastroenteritis -- Adult Prescriptions: Promethazine HCl [Phenergan 25mg tab] 25 mg PO BID #12 tab Transmission Status: Pending to [facility] Ondansetron [Zofran 4mg ODT] 4 mg PO BIDP PRN #10 tab PRN Reason: Nausea Transmission Status: Pending to [facility] Referrals: Kemi Mayes APRN [Primary Care Provider] - Mendoza Barber II, MD [Referring] - - Critical Care Critical Care Time: No Attestation: On 04/01/22, the high probability of a clinically significant, sudden or life threatening deterioration of the following system(s) required my full and direct attention, intervention and personal management. The time I documented below is in addition to time spent performing reported procedures but includes the following listed in this critical care notation. Medical Decision Making - Medical Records Medical records reviewed: Yes: I reviewed the patient's medical records. - Soto Inquiry Pt receiving controlled substance: No Vital Signs: 04/01/22 17:08 04/01/22 18:11 04/01/22 18:30 Temperature 98.1 F 98.2 F Temperature Source Oral Oral Pulse Rate 56 L Pulse Rate [Left] 75 64 Respiratory Rate 16 17 18 Blood Pressure 144/81 H Blood Pressure [Right Arm] 134/59 L 137/86 Blood Pressure Mean 102 Blood Pressure Mean [Right Arm] 84 103 Blood Pressure Source [Right Arm] Automatic Cuff Blood Pressure Position [Right Arm] Sitting 02 Sat by Pulse Oximetry 95 99 99 Oxygen Delivery Method Room Air - Lab Data Lab Results 04/01/22 17:18: WBC 9.8, RBC 4.78, Hgb 15.2, Hct 45.9, MCV 95.9 H, MCH 31.9 H, MCHC 33.2, RDW 14.0, Plt Count 271, MPV 7.8, Neut % (Auto) 55.6, Lymph % (Auto) 33.7, Andrew % (Auto) 6.3, Eos % (Auto) 2.8, Baso % (Auto) 1.5, Neut # (Auto) 5.5, Lymph # (Auto) 3.3, Andrew # (Auto) 0.6, Eos # (Auto) 0.3, Baso # (Auto) 0.2 04/01/22 17:18: Sodium 138, Potassium 3.6, Chloride 105, Carbon Dioxide 29, Anion Gap 7.6, BUN 13, Creatinine 0.90, Estimated Creat Clear 129, Estimated GFR 94, Est GFR ( Amer) 114, Glucose 99, Calcium 9.2, Amylase 172 H, Lipase 484 H Result diagrams: 04/01/22 17:18 04/01/22 17:18 Orders (Tests/Meds): ED MEDICATIONS Generic Name Dose Route Start Last Admin Trade Name Freq PRN Reason Stop Dose Admin Sodium Chloride 1,000 mls @ 999 mls/hr 04/01/22 18:30 04/01/22 18:45 Sod Chlor 0.9% 1000ml Bag IV 04/01/22 19:30 999 mls/hr .Q1H1M CHRISTEL Administration Sodium Chloride 10 ml 04/01/22 18:44 Sodium Chloride 0.9% 10ml Flush Syringe IV 05/01/22 18:43 NEEDED PRN Maintain IV Site Discontinued Medications Generic Name Dose Route Start Last Admin Trade Name Freq PRN Reason Stop Dose Admin Diphenhydramine HCl 25 mg 04/01/22 18:30 04/01/22 18:44 Diphenhydramine 50mg/Ml Vial IV 04/01/22 18:31 25 mg ONCE ONE Administration Iopamidol 75 ml 04/01/22 18:59 04/01/22 19:00 Iopamidol-370 (76%);100ml Bottle IV 04/01/22 19:00 75 ml ONCE ONE Administration Ondansetron HCl 4 mg 04/01/22 18:30 04/01/22 18:44 Ondansetron 4mg/2ml Vial IV 04/01/22 18:31 4 mg ONCE ONE Administration Sodium Chloride 10 ml 04/01/22 18:59 04/01/22 19:00 Sodium Chloride 0.9% 10ml Syr (Rad Only) IV 04/01/22 19:00 10 ml ONCE ONE Administration - CT Data CT Scan: Abdomen, Pelvis Time Received: 19:[address] Reviewed: Yes: I have reviewed the patient's CT results, I have viewed the radiologist's interpretation Findings Narrative: IMPRESSION: Nonspecific findings that suggest gastroenteritis. - Reevaluation(s) Time: 19:47 Reevaluation #1: On reevaluation, patient is feeling better. Nausea an
[2022-04-01 19:52] VITALS: BP 135/79; PULSE 59; RESP 18; TEMP 36.8; O2SAT 99
== END 2022-04-01 19:58 | disposition home or self-care (01) ==
LOC: UTC 18:13 → ER 18:13
PROVIDERS: Nurse Practitioner Family; Emergency Provider Emergency Medicine; PCP Nurse Practitioner Family
DX: K86.1 Other chronic pancreatitis (principal); K52.9 Noninfective gastroenteritis and colitis, unspecified; K92.1 Melena; R12 Heartburn; Z79.51 Long term (current) use of inhaled steroids; Z79.52 Long term (current) use of systemic steroids; Z79.899 Other long term (current) drug therapy
CPT/HCPCS: 74177; 80048; 82150; 83690; 85025; 96374; 96375; 99213; 99285; G0463; J2405; Q9967

== ENCOUNTER 2022-05-24 17:34 | Emergency (ER) | payer BC, SELFPAY ==
[2022-05-24 17:52] VITALS: BP 131/76; PULSE 77; RESP 18; TEMP 36.6; O2SAT 98; BMI 26.3
--- NOTE | 2022-05-24 17:58 | EXP.UTC ---
Discharge Plan Disposition Patient Disposition: Home, Self-Care Condition: Good Prescriptions Prescriptions: New amoxicillin-pot clavulanate 875-125 mg Tablet 1 tab PO Q12H Qty: 20 0RF ibuprofen [IBU] 800 mg tablet 800 mg PO TIDP PRN (Reason: Moderate Pain) Qty: 20 0RF No Action amoxicillin 875 MG tablet 875 mg PO Q12H Qty: 20 0RF azithromycin 250 MG tablet 250 mg PO UD DOSE PK Qty: 6 0RF Rx Instructions: Take two (2) tablets today, then one (1) tablet days #2 thru #5 shidcazhcekwhig-jbkeqreur-HU 118 ML syrup 5 ml PO Q6HP PRN (Reason: Cough) Qty: 240 0RF ondansetron 4 MG tablet,disintegrating 4 mg PO Q8HP PRN (Reason: Nausea) Qty: 20 0RF methylprednisolone 4 MG tablets,dose pack 4 mg PO DIRECTED 6 Days Qty: 21 0RF albuterol sulfate 8.5 GM HFA aerosol inhaler 2 puffs IH Q6HP PRN (Reason: Shortness Of Breath) 30 Days Qty: 1 5RF promethazine 25 MG tablet 25 mg PO BID Qty: 12 0RF ondansetron 4 MG tablet,disintegrating 4 mg PO BIDP PRN (Reason: Nausea) Qty: 10 0RF Referrals Follow up/Referrals: Kemi Mayes APRN [Primary Care Provider] - See instructions Rojelio Corbett [Referring] - See instructions Activity Restrictions/Add. Instructions Additional Instructions/Restrictions: Use [facility] Take antibitoics as prescribed Follow up with Dentist for further treatment and evalation Return if needed Straight to ER if any life threatening symptoms Clinical Impressions Clinical Impression: Pain, dental, Abscess, dental Instructions Patient Instructions: Tooth Abscess, DI for Tooth Abscess [place]charge ED [place] [facility] [place] General Stated complaint: dental pain Mode of Arrival: Ambulatory Source of Information: Patient Limitations: No Limitations Time Seen by Provider: 05/24/22 17:58 Description of Symptoms (Recalled from Triage Doc. by RN): c/o toothache that extends into jaw and left ear HEENT Symptoms (Recalled from RN notes): Yes (toothache) Resp Symptoms (Recalled from RN notes): No Skin Symptoms (Recalled from RN notes): No MS Symptoms (Recalled from RN notes): No Functional Status (Recalled from RN notes): n/a History of Present Illness Provider Complaint: Patient states that he has several broken and decaying teeth States that he has been having pain and swelling on left lower jaw area that is shooting back into his left ear States that he hasnt had dental insurance and has it now has it but today he was having pain again so he came in Related Data Previous Rx's Medication Instructions Recorded amoxicillin 875 mg tablet 875 mg PO Q12H #20 tabs 06/27/21 albuterol sulfate 90 mcg/actuation 2 puffs IH Q6HP PRN Shortness Of 10/02/21 aerosol inhaler Breath 30 days #1 ea azithromycin 250 mg tablet 250 mg PO UD DOSE PK #6 tabs 10/02/21 axdliyqjdpnqrtq-yofqrzzpdnxmkza-PG 5 ml PO Q6HP PRN Cough #240 mL 10/02/21 2 mg-30 mg-10 mg/5 mL oral syrup methylprednisolone 4 mg tablets in 4 mg PO DIRECTED 6 days #21 10/02/21 a dose pack packets ondansetron 4 mg disintegrating 4 mg PO Q8HP PRN Nausea #20 tabs 10/02/21 tablet ondansetron 4 mg disintegrating 4 mg PO BIDP PRN Nausea #10 tabs 04/01/22 tablet promethazine 25 mg tablet 25 mg PO BID #12 tabs 04/01/22 amoxicillin 875 mg-potassium 1 tab PO Q12H #20 tabs 05/24/22 clavulanate 125 mg tablet ibuprofen 800 mg tablet (IBU) 800 mg PO TIDP PRN Moderate Pain 05/24/22 #20 tabs Allergies Allergy/AdvReac Type Severity Reaction Status Date / Time No Known Allergies Allergy Verified 04/01/22 17:11 Worker's Comp Is this a Worker's Comp case?: No PFSH PFSH Social History Smoking Status: Current every day smoker tobacco type: cigarettes packs per day: 1 second hand exposure: No alcohol intake: never substance use type: marijuana current occupational status: other Travel in the last 8 weeks: None ROS Obtained: Yes All systems reviewed
[2022-05-24 18:14] VITALS: BP 131/76; PULSE 77; RESP 19; TEMP 36.6; O2SAT 98
== END 2022-05-24 18:15 | disposition home or self-care (01) ==
PROVIDERS: Emergency Provider Nurse Practitioner; PCP Nurse Practitioner Family
DX: K04.7 Periapical abscess without sinus (principal); S02.5XXA Fracture of tooth (traumatic), initial encounter for closed fracture; H92.02 Otalgia, left ear; K02.9 Dental caries, unspecified; K05.10 Chronic gingivitis, plaque induced; M27.2 Inflammatory conditions of jaws; R06.02 Shortness of breath; R05.9 Cough, unspecified; R11.0 Nausea; F17.210 Nicotine dependence, cigarettes, uncomplicated; Z79.1 Long term (current) use of non-steroidal anti-inflammatories (NSAID); Z79.51 Long term (current) use of inhaled steroids; Z79.52 Long term (current) use of systemic steroids; Z79.899 Other long term (current) drug therapy
CPT/HCPCS: 99213; G0463

== ENCOUNTER → 2022-06-04 14:49 | Outpatient (CLI) | payer BC, SELFPAY ==
--- NOTE | 2022-06-04 14:54 | XR_ITS ---
FINAL REPORT TECHNIQUE: Chest PA & Lateral CLINICAL HISTORY: LT SIDED CHEST PAIN. smoker COMPARISON: 10/02/2021 FINDINGS: 2 views of the chest were performed. The heart size is normal. The mediastinum is within normal limits. There is no acute cardiopulmonary process. There are no pleural effusions. There is no pneumothorax. The bony thorax appears intact. IMPRESSION: No acute cardiopulmonary process. Reviewed, Interpreted and Dictated by Butch Edwards III, MD Transcribed by Arnulfo Coronel Authenticated and [facility]
== END ==
LOC: RAD 14:50
PROVIDERS: PCP Nurse Practitioner Family; Visit Provider Nurse Practitioner Family
DX: R07.9 Chest pain, unspecified (principal)
CPT/HCPCS: 71046

== ENCOUNTER 2022-08-09 12:47 | Emergency (ER) | payer BC, SELFPAY ==
[2022-08-09 13:00] VITALS: BP 127/72; PULSE 81; RESP 20; TEMP 36.6; O2SAT 95; BMI 26.4
--- NOTE | 2022-08-09 13:11 | EXP.UTC ---
Discharge Plan Disposition Patient Disposition: Home, Self-Care Condition: Good Prescriptions Prescriptions: New prednisone [prednisone] 20 mg tablet 20 mg PO BID 5 Days Qty: 10 0RF amoxicillin-pot clavulanate 875-125 mg Tablet 1 tab PO Q12H Qty: 20 0RF Referrals Follow up/Referrals: Kemi Mayes APRN [Primary Care Provider] - See instructions Activity Restrictions/Add. Instructions Additional Instructions/Restrictions: Upper respiratory panel results pending (COVID, flu, etc). Please isolate yourself as if positive until test results received. Clinical Impressions Clinical Impression: Bilateral otitis media Discharge ED Provider: Samantha Ruiz [facility] [place] H[place] General Stated complaint: Sore throat, RT ear pain, fever Time Seen by Provider: 08/09/22 13:11 History of Present Illness Provider Complaint: Sore throat, ear pain, nasal congestion, fever, body aches, chills since last night. Has been exposed to strep and flu. Onset (ago): day(s) (1) Relieving factors: none Exacerbating factors: none Associated symptoms: fever/chills and headaches Treatments prior to arrival: none Related Data Previous Rx's Medication Instructions Recorded amoxicillin 875 mg-potassium 1 tab PO Q12H #20 tabs 08/09/22 clavulanate 125 mg tablet prednisone 20 mg tablet 20 mg PO BID 5 days #10 tabs 08/09/22 Allergies Allergy/AdvReac Type Severity Reaction Status Date / Time No Known Allergies Allergy Verified 04/01/22 17:[address] [facility] Disclaimer: The information contained in this section may have been updated after the patient was seen, as this information can be updated by other users. Medical History (Updated 08/09/22 @ 13:46 by MARVIN Lee) Anxiety Asthma Depression History of gastroesophageal reflux (GERD) Surgical History (Updated 08/09/22 @ 13:20 by Karine Stone RN) History of tonsillectomy Social History (Updated 08/09/22 @ 13:20 by Karine Stone RN) Smoking Status: Current every day smoker tobacco type: cigarettes packs per day: 1 second hand exposure: No alcohol intake: never substance use type: marijuana current occupational status: other Travel in the last 8 weeks: None ROS Obtained: Yes All systems reviewed & no additional complaints except as documented Constitutional Constitutional: Reports fatigue, Reports fever(s), Reports headache(s) and Reports malaise ENT Ears, Nose, Mouth, and Throat: Reports otalgia, Reports headache(s), Reports nasal congestion and Reports sore throat Neurologic Neurologic: Reports headache(s) Endocrine Endocrine: Reports fatigue Physical Exam General General appearance: alert and in no apparent distress Head Head exam: atraumatic, normocephalic and normal inspection Eye Eye exam: Present normal appearance, PERRL and EOMI ENT ENT exam: Present normal exam, normal oropharynx, mucous membranes moist and normal external ear exam Expanded ENT Exam TM/Canal exam: Bilateral TM: erythema and bulging Neck Neck exam: Present normal inspection, full ROM and trachea midline; Absent meningismus or lymphadenopathy Chest Chest inspection: Present normal inspection and symmetric chest wall rise; Absent tenderness Respiratory Respiratory exam: Present normal lung sounds bilaterally; Absent respiratory distress Cardiovascular Cardiovascular exam: Present regular rate and normal rhythm; Absent JVD Abdominal Exam Abdominal exam: Present soft and normal bowel sounds; Absent distention, tenderness or guarding Extremities Exam Extremities exam: Present normal inspection, full ROM and normal capillary refill; Absent calf tenderness Back Exam Back exam: Present normal inspection; Absent tenderness Neurological Exam Neurological exam: Present alert and oriented X3 Psychiatric Psychiatric exam: Present normal affect and normal mood Skin Skin exam: Present warm, dry, intact and normal color Lymphatic Lymphatic Findings: no adeno
[2022-08-09 13:18] LABS: UTC Strep Screen (Rapid) Negative (Negative)
[2022-08-09 13:24] LABS: Adenovirus,PCR Not Detected (NotDetected); Bordetella Pertussis Not Detected (NotDetected); Chlamydophila Pneumoniae, PCR Not Detected (NotDetected); Coronavirus 229E Not Detected (NotDetected); Coronavirus NL63 Not Detected (NotDetected); Coronavirus OC43 Not Detected (NotDetected); Coronovirus HKU1,PCR Not Detected (NotDetected); Human Metapneumovirus Not Detected (NotDetected); Influenza A, PCR Not Detected (NotDetected); Influenza AH1, 2009 Not Detected (NotDetected); Influenza AH1, PCR Not Detected (NotDetected); Influenza AH3,PCR Not Detected (NotDetected); Influenza B, PCR Not Detected (NotDetected); Mycoplasma Pneumoniae, PCR Not Detected (NotDetected); Parainfluenza 1, PCR Not Detected (NotDetected); Parainfluenza 2, PCR Not Detected (NotDetected); Parainfluenza 3, PCR Not Detected (NotDetected); Parainfluenza 4, PCR Not Detected (NotDetected); Respiratory Syncytial Virus Not Detected (NotDetected); Rhinovirus/Enterovirus Not Detected (NotDetected)
[2022-08-09 14:03] VITALS: BP 127/72; PULSE 81; RESP 20; TEMP 36.6; O2SAT 95
[2022-08-09 21:25] LABS: Coronavirus 19, PCR Detected (NotDetected)
== END 2022-08-09 14:12 | disposition home or self-care (01) ==
PROVIDERS: Emergency Provider Physician Assistant; PCP Nurse Practitioner Family
DX: H66.93 Otitis media, unspecified, bilateral (principal)
CPT/HCPCS: 87581; 87632; 87798; 87880; 99212; C9803; G0463; U0003; U0005

== ENCOUNTER 2022-09-12 09:44 | Emergency (ER) | payer BC, SELFPAY ==
[2022-09-12 09:46] VITALS: BP 118/75; PULSE 69; RESP 17; TEMP 36.7; O2SAT 99; BMI 26.4
[2022-09-12 09:50] VITALS: BP 118/75; PULSE 66; O2SAT 97
--- NOTE | 2022-09-12 09:55 | XR_ITS ---
FINAL REPORT CLINICAL HISTORY: Left wrist pain after a fall FINDINGS: AP, oblique, and lateral views of the left wrist were obtained. There is no prior exam for comparison. There is no acute fracture or dislocation. The joint spaces are preserved. The soft tissues are normal. IMPRESSION: No acute osseous abnormality of the left wrist. If pain persists, MR is recommended. Reviewed, Interpreted and Dictated by Vilma Spencer MD Transcribed by Emily Chavez Authenticated and [facility]
--- NOTE | 2022-09-12 09:55 | XR_ITS ---
FINAL REPORT CLINICAL HISTORY: Left hand pain after a fall FINDINGS: AP, oblique, and lateral views of the left hand were obtained. There is no prior exam for comparison. There is no acute fracture of the left hand. The joint spaces are preserved. The soft tissues are normal. IMPRESSION: No acute osseous abnormality of the left hand. Reviewed, Interpreted and Dictated by Vilma Spencer MD Transcribed by Emily Chavez Authenticated and [facility]
--- NOTE | 2022-09-12 09:55 | HMH.EDGENADL ---
Discharge Plan Disposition Patient Disposition: Home, Self-Care Condition: Good Chief Complaint: Extremity Injury, Lower Referrals Follow up/Referrals: Kemi Mayes APRN [Primary Care Provider] - See instructions Nguyễn Pena JR, MD [Physician] - See instructions Activity Restrictions/Add. Instructions Additional Instructions/Restrictions: Splint. Aleve as needed for pain and inflammation. Ice 20 minutes 4 times a day as needed for pain or swelling. Follow-up with orthopedics, Dr. Pena, call to make appointment. Clinical Impressions Clinical Impression: Sprain and strain of left hand Instructions Patient Instructions: DI for Finger Sprain Discharge ED Provider: Gorge Granger General Adult HPI General Chief complaint: Extremity Injury, Lower Stated complaint: AO [id number] left hand home accident Time Seen by Provider: 09/12/22 09:55 Mode of Arrival: Ambulatory Limitations: No Limitations Description of Symptoms (Recalled from ER Triage Doc. by RN): PT TRIPPED BY DOG ON FRIDAY, FALL TO LEFT HAND AND WRIST. REPORTS BURNING PAIN TO INDEX FINGER History of Present Illness HPI narrative: Patient states that he was tripped by his dog on Friday, 4 days ago and struck his left hand on a door frame, forcibly spreading his index and middle finger apart. He has pain in his second webspace since then and when he flexes his hand into a fist he has pain that radiates from that area up into his wrist. Denies numbness or weakness or other injuries. He has had previous surgery on his left hand to repair a ligament at the thumb MCP joint in about 2017. Related Data Allergies Allergy/AdvReac Type Severity Reaction Status Date / Time No Known Allergies Allergy Verified 04/01/22 17:11 [facility] Disclaimer: The information contained in this section may have been updated after the patient was seen, as this information can be updated by other users. Medical History (Updated 09/12/22 @ 10:38 by Gorge Granger MD) Anxiety Asthma Depression History of gastroesophageal reflux (GERD) Surgical History History of tonsillectomy Social History Smoking Status: Current every day smoker tobacco type: cigarettes packs per day: 1 second hand exposure: No alcohol intake: never substance use type: marijuana current occupational status: other Travel in the last 8 weeks: None ROS Obtained: Yes Systems reviewed as appropriate & no additional complaints except as documented Constitutional Constitutional: Denies weakness Musculoskeletal Musculoskeletal: Reports as per HPI, Denies numbness and Reports other (Left hand pain) Neurologic Neurologic: Denies numbness and Denies weakness Physical Exam General General appearance: alert and in no apparent distress Chest Chest inspection: Present normal inspection and symmetric chest wall rise Respiratory Respiratory exam: Absent respiratory distress Cardiovascular Cardiovascular exam: Present regular rate Expanded Upper Extremity Exam Left: Comment: Left hand and wrist without edema, ecchymosis, deformity, abrasions, or lacerations. Tenderness in his second webspace. Minimal tenderness along the second metacarpal and radial aspect of his wrist. Distal neurovascular status intact. Neurological Exam Neurological exam: Present alert and oriented X3; Absent motor sensory deficit Psychiatric Psychiatric exam: Present normal affect and normal mood Skin Skin exam: Present warm and dry Medical Decision Making Soto Inquiry Pt receiving controlled substance: No Vital Signs: 09/12/22 09:46 09/12/22 09:50 09/12/22 10:00 Temperature 98.0 F Temperature Source Oral Pulse Rate 66 69 Pulse Rate [Radial] 69 Respiratory Rate 17 Blood Pressure 118/75 117/70 Blood Pressure [Right Arm] 118/75 Blood Pressure Mean 84 81 Blood Pressure
[2022-09-12 10:00] VITALS: BP 117/70; PULSE 69; O2SAT 97
[2022-09-12 10:45] VITALS: BP 116/74; PULSE 60; RESP 18; TEMP 36.7; O2SAT 99
== END 2022-09-12 10:45 | disposition home or self-care (01) ==
PROVIDERS: Emergency Provider Emergency Medicine; PCP Nurse Practitioner Family
DX: S63.92XA Sprain of unspecified part of left wrist and hand, initial encounter (principal); S66.912A Strain of unspecified muscle, fascia and tendon at wrist and hand level, left hand, initial encounter; W01.0XXA Fall on same level from slipping, tripping and stumbling without subsequent striking against object, initial encounter
CPT/HCPCS: 73110; 73130; 99284

== ENCOUNTER → 2022-10-04 13:57 | Outpatient (CLI) | payer BC, SELFPAY ==
--- NOTE | 2022-10-04 14:01 | XR_ITS ---
FINAL REPORT CLINICAL HISTORY: left index/middle finger injury FINDINGS: LEFT HAND Three views demonstrate no acute fracture or dislocation. There are mild degenerative changes of the D IP and PIP joints. Soft tissues are unremarkable. IMPRESSION: No acute process. Reviewed, Interpreted and Dictated by Tarik Hernandez MD Transcribed by Monica Garcia Authenticated and [facility]
== END ==
LOC: RAD 13:59
PROVIDERS: PCP Nurse Practitioner Family; Visit Provider Orthopaedic Surgery
DX: S63.92XA Sprain of unspecified part of left wrist and hand, initial encounter (principal); S66.912A Strain of unspecified muscle, fascia and tendon at wrist and hand level, left hand, initial encounter
CPT/HCPCS: 73130

== ENCOUNTER 2023-02-18 10:36 | Emergency (ER) | payer BC, SELFPAY ==
[2023-02-18 10:37] VITALS: BP 130/78; PULSE 72; RESP 16; TEMP 36.6; O2SAT 100; BMI 27.4
[2023-02-18 11:00] VITALS: BP 121/74; PULSE 72; O2SAT 99
[2023-02-18 11:30] VITALS: BP 119/74; PULSE 76; O2SAT 98
--- NOTE | 2023-02-18 11:30 | HMH.EDGENADL ---
Discharge Plan Disposition Patient Disposition: Home, Self-Care Condition: Fair Prescriptions Prescriptions: New methylprednisolone [Medrol (Yordan)] 4 mg tablets,dose pack 4 mg PO DAILY Qty: 21 0RF No Action omeprazole 20 mg capsule,delayed release(DR/EC) 20 mg PO Label Comments: TAKE 1 CAPSULE BY MOUTH IN THE MORNING FOR 90 DAYS Referrals Follow up/Referrals: Kemi Mayes APRN [Primary Care Provider] - See instructions Clinical Impressions Clinical Impression: Lumbar back pain with radiculopathy affecting right lower extremity Stand Alone Forms Stand Alone Forms: Work/School Release Instructions Patient Instructions: DI for Back Pain With Sciatica Print Language Print Language: Mauritanian Discharge ED Provider: Shravan Shrestha General Adult HPI General Chief complaint: Back Pain/Injury Stated complaint: Low back pain radiating into RT leg Time Seen by Provider: 02/18/23 11:30 Mode of Arrival: Ambulatory Source of Information: Patient Limitations: No Limitations Description of Symptoms (Recalled from ER Triage Doc. by RN): pt to the ED with right sided sciatic pain. pt reports he was seen at [facility] and was given a torodol shot and flexaril. pt reports he took the flexaril but didnt take the torodal prescribed becaue he heard it can cause injury to kidneys. pt denies any new injury History of Present Illness HPI narrative: Patient presents the emergency department with right back pain that radiates to the right lower extremity patient reports that he has had this pain x3 days. Patient reports that the pain is worse with lying extending his right leg and sitting up MD complaint: Right back pain radiating to the lower extremity. Onset (ago): day(s) (3) Radiation: extremity Relieving factors: other (Toradol) Exacerbating factors: movement Treatments prior to arrival: none Related Data Home Medications Medication Instructions Recorded Confirmed omeprazole 20 mg capsule,delayed 20 mg PO 09/20/22 10/04/22 release Previous Rx's Medication Instructions Recorded methylprednisolone 4 mg tablets in 4 mg PO DAILY #21 tabs 02/18/23 a dose pack (Medrol (Yordan)) Allergies Allergy/AdvReac Type Severity Reaction Status Date / Time No Known Allergies Allergy Verified 10/04/22 14:34 [facility] Disclaimer: The information contained in this section may have been updated after the patient was seen, as this information can be updated by other users. Medical History Anxiety Asthma Depression History of gastroesophageal reflux (GERD) Surgical History History of esophagogastroduodenoscopy (EGD) History of tonsillectomy Social History Smoking Status: Never smoker second hand exposure: No alcohol intake: never substance use type: marijuana current occupational status: other Travel in the last 8 weeks: None ROS Obtained: Yes Systems reviewed as appropriate & no additional complaints except as documented Musculoskeletal Comments: Back pain, leg pain Physical Exam General General appearance: alert and in no apparent distress Eye Eye exam: Present EOMI ENT ENT exam: Present normal external ear exam Respiratory Respiratory exam: Present normal lung sounds bilaterally Cardiovascular Cardiovascular exam: Present regular rate Extremities Exam Extremities exam: Present tenderness Back Exam Back exam: Present normal inspection, full ROM and straight leg raise (R) Neurological Exam Neurological exam: Present alert, oriented X3 and reflexes normal Psychiatric Psychiatric exam: Present normal affect Medical Decision Making Soto Inquiry Pt receiving controlled substance: No Vital Signs: 02/18/23 10:37 02/18/23 11:00 02/18/23 11:30 Temperature 97.9 F Temperature Source Oral Pulse Rate 7
--- NOTE | 2023-02-18 11:34 | XR_ITS ---
FINAL REPORT TECHNIQUE: 3 views CLINICAL HISTORY: back pain FINDINGS: There is no fracture present. There is mild right curvature of the lumbar spine. Mild degenerative change is noted. IMPRESSION: No acute process. Mild right curvature of the lumbar spine and mild degenerative change is present. Reviewed, Interpreted and Dictated by Butch Edwards III, MD Transcribed by Preeti Casillas Authenticated and [facility]
[2023-02-18 12:00] VITALS: BP 126/68; PULSE 65; O2SAT 98
--- NOTE | 2023-02-18 12:09 | PC.NURSE ---
ROUNDED ON PATIENT, LAND DEVELOPMENT MANAGER AT BEDSIDE, NO NEEDS AT THIS TIME CALL LIGHT WITHIN REACH
[2023-02-18 12:43] VITALS: BP 128/77; PULSE 60; RESP 16; TEMP 36.7
== END 2023-02-18 12:45 | disposition home or self-care (01) ==
PROVIDERS: Emergency Provider Emergency Medicine; PCP Nurse Practitioner Family
DX: M54.16 Radiculopathy, lumbar region (principal); K21.9 Gastro-esophageal reflux disease without esophagitis; J45.909 Unspecified asthma, uncomplicated; F41.9 Anxiety disorder, unspecified; F32.A Depression, unspecified
CPT/HCPCS: 72100; 96372; 99283; 99284

== ENCOUNTER → 2023-04-04 13:25 | Outpatient (CLI) | payer BC, SELFPAY ==
--- NOTE | 2023-04-04 | CA_ITS ---
APPROVED REPORT Exam: Exercise Treadmill Technologist: Silva Martin, Ht: 5 ft 11 in Wt: 198 lbs BSA: 2.10 m2 HR: 62 bpm BP: 119/66 mmHg Rhythm: NSR,EARLY REPOLARIZATION PATTERN Medical History Medications: Omeprazole,,,,, Cardiac Risk Factors: Smoking Stress Test Details Test: Iron HR Resting HR: 76 bpm Max Heart Rate (APMHR): 180 bpm Max HR Achieved: 143 bpm Target HR (85% APMHR): 153 bpm % of APMHR: 79 Recovery HR: 112 bpm HR response to stress: Blunted HR response to stress BP Resting BP: 119.0/66.0 mmHg Max BP: 186.0/70.0 mmHg Recovery BP: 150.0/74.0 mmHg BP response to stress: Normal blood pressure response to stress. ECG Resting ECG: NSR, EARLY REPOLARIZATION CHANGES Stress ECG: NO SIGNIFICANT ST CHANGES Arrhythmia: NONE Recovery ECG: NO CHANGE Recovery Arrhythmia: NONE Clinical Reason for Termination: Dyspnea Exercise duration: 09:07 min Highest Stage Achieved: Exercise capacity: 10.1 METs Overall Exercise Capacity for Age: Average Stress ECG Conclusion THIS WAS A SUBOPTIMAL STRESS TEST DUE TO PATIENT BEING UNABLE TO ACHIEVE TARGET HR. THE PATIENT EXERCISED FOR A TOTAL OF 9:07 ON IRON PROTOCOL. HE ACHIEVED A TOTAL OF 10.1 METS. HE HAS AN AVERAGE EXERCISE CAPACITY COMPARED TO AGE AND SEX MATCHED PEERS. MAX HEART RATE OF 143 BPM WHICH IS 79% OF PM FOR AGE. MAX BP 186/70. TEST STOPPED DUE TO SOA. NO CP. NO ARRHYTHMIAS/ECTOPY. NO SIGNIFICANT ST CHANGES WERE NOTED AT PEAK STRESS OR DURING RECOVERY CONCLUSION: SUBOPTIMAL STRESS TEST DUE TO INABILITY TO ACHIEVE TARGET HR. AVERAGE EXERCISE CAPACITY NON-DIAGNOSTIC ECG STRESS TEST DUE TO SUBOPTIMAL HR. NO EVIDENCE OF ISCHEMIA FOR THE LEVEL OF EXERCISE PERFORMED IN THIS STUDY. Test Summary REST . . . . . . . Standing REST . . . . . . . Sitting REST . . . . . . . Sitting REST 04:46 0.0 0.0 76 . 119/ 66 . . Stage 1 01:00 10.0 1.7 93 . . . . Stage 1 02:00 10.0 1.7 95 . . . . Stage 1 03:00 10.0 1.7 99 . 142/ 74 . . Stage 2 01:00 12.0 2.5 109 . . . . Stage 2 02:00 12.0 2.5 108 . . . . Stage 2 03:00 12.0 2.5 118 . 160/ 70 . . Stage 3 01:00 14.0 3.4 123 . . . . Stage 3 02:00 14.0 3.4 129 . . . . Stage 3 03:00 14.0 3.4 135 . 186/ 70 . . Stage 4 00:07 16.0 4.2 140 . . . Stop exercise at 09:07 RECOVERY 01:00 0.0 0.0 112 . . . . RECOVERY 02:00 0.0 0.0 82 . . . . RECOVERY 03:00 0.0 0.0 87 . 150/ 74 . . RECOVERY 04:00 0.0 0.0 84 . 151/ 71 . . RECOVERY 05:00 0.0 0.0 72 . 151/ 71 . . RECOVERY 05:24 0.0 0.0 81 . 132/ 66 . . Electronically signed by : Nanette Olson, 04/12/2023 17:20:30
--- NOTE | 2023-04-04 13:33 | CA_ITS ---
APPROVED REPORT EXAM: Comprehensive 2D, Doppler, and color-flow Echocardiogram Manager Mail: Clara Cunningham RT(R) Ht: 5 ft 11 in Wt: 190lbs BSA: 2.06 BP: 120/49 mmHg Indications: CP, smoker, SIMS 2D Dimensions LVOT 1.95 cm (M/F) 1.5-2.5 LVEF (Zambrano's) 52.90 % M: 52 - 72 LV Volume 129.90 mL M: 62 - 150 LV Volume Index 62.75 mL/m2 M: 34 - 74 M-Mode Dimensions RVDd 2.26 cm (0.9-2.6) LA Diam 2.83 cm (1.9-4.0) LVDd 4.87 cm (3.5-5.7) Ao Diam 2.76 cm (2.0-3.7) LVDs 3.72 cm (3.5-5.7) IVSd 0.72 cm (0.6-1.1) PWd 0.72 cm (0.6-1.1) EF (Teich) 47.00% FS 23.60% EDV (Teich) 111.20 mL ESV (Teich) 58.90 mL LV Diastology E Decel Time 210.00 (160-240 msec) E/A Ratio 2.0 MED E' 12.10 (< 7 cm/sec) E'/MED E' Ratio 8.17 (>14) LAT E' 15.30 (<10 cm/sec) E/LAT E' Ratio 6.46 (>14) Mitral Valve MV E Max Waqar. 99.00 (40-130 cm/s) MV A Velocity 50.00 (40-130 cm/s) E/A Ratio 1.97 MV Decel. Time 210.00 (160-240 ms) MV PHT 62.00 ms Left Ventricle The left ventricle is normal size. The left ventricular systolic function is normal. The left ventricular ejection fraction is within the normal range. There is normal left ventricular wall thickness. There is normal LV segmental wall motion. The left ventricular diastolic function is normal. LVEF is 55-60%. Right Ventricle The right ventricle is normal size. The right ventricular systolic function is normal. Atria The left atrium size is normal. The right atrium size is normal. There is no Doppler evidence of interatrial shunt. Aortic Valve The aortic valve opens well. There is no aortic valvular stenosis. No aortic regurgitation is present. Mitral Valve The mitral valve is normal in structure. No evidence of mitral valve stenosis. There is no mitral valve regurgitation noted. Tricuspid Valve The tricuspid valve leaflets are thin and pliable. Trace tricuspid regurgitation. There is insufficient TR jet to estimate RVSP. Pulmonic Valve The pulmonary valve is normal in structure. Trace pulmonic regurgitation. Great Vessels The aortic root is normal in size. The ascending aorta is not well visualized. IVC is normal in size and collapses >50% with inspiration. Pericardium There is no pericardial effusion. Other Information Study Quality: Fair Conclusion Normal biventricular systolic function. No significant valvular disease. Electronically signed by : Nanette Olson, 04/06/2023 17:33:32
== END ==
LOC: RT 13:26
PROVIDERS: PCP Nurse Practitioner Family; Visit Provider Nurse Practitioner
DX: R06.00 Dyspnea, unspecified (principal); R07.89 Other chest pain; R73.03 Prediabetes; F17.200 Nicotine dependence, unspecified, uncomplicated
CPT/HCPCS: 93017; 93306

== ENCOUNTER 2023-11-18 07:41 | Outpatient (CLI) | payer OTHER, SELFPAY ==
--- NOTE | 2023-11-18 07:44 | US_ITS ---
FINAL REPORT TECHNIQUE: Ultrasound images of the abdomen were obtained. CLINICAL HISTORY: UPPER ABD PAIN COMPARISON: None FINDINGS: The pancreas is obscured by bowel gas. The liver is unremarkable. The gallbladder contains a small amount of sludge. The common duct is normal. The right kidney measures 11.2 cm in length and is normal in echogenicity without hydronephrosis. The left kidney measures 10.8 cm in length and is normal in echogenicity without hydronephrosis. The spleen is unremarkable. The aorta is normal in caliber. The vena cava is unremarkable. IMPRESSION: A small amount of sludge is present in the gallbladder. Reviewed, Interpreted and Dictated by Tarik Hernandez MD Transcribed by Preeti Casillas Authenticated and [facility]
== END 2023-11-18 23:59 ==
LOC: RAD 07:42
PROVIDERS: PCP Nurse Practitioner; Visit Provider Nurse Practitioner
DX: R10.10 Upper abdominal pain, unspecified (principal)
CPT/HCPCS: 76700

== ENCOUNTER 2023-12-17 10:08 | Outpatient (CLI) | payer OTHER, SELFPAY ==
[2023-12-17] MEDS: ISOTOPE CHOLETECH;1 DOSE (UP TO 15 MCI) IV (12:27)
[2023-12-17] MEDS: SODIUM CHLORIDE 0.9% 10ML SYR (RAD ONLY) 10 ML IV (12:27)
[2023-12-17] MEDS: SINCALIDE 1.8 MCG in 0.9 % SODIUM CHLORIDE 50 ML 100 MCG IV (12:27)
== END 2023-12-17 23:59 | disposition home or self-care (01) ==
LOC: RAD 10:08
PROVIDERS: PCP Nurse Practitioner; Visit Provider Nurse Practitioner
DX: K82.8 Other specified diseases of gallbladder (principal)
CPT/HCPCS: 78227; A9537; J2805